=== PATIENT | female | born 1985 | race Caucasian/White ===

== ENCOUNTER 2021-01-08 02:35 | Inpatient (IN) ==
[2021-01-08] MEDS ORDERED: Isovue-370 500 ML BOTTLE IVP ONE (02:47)
[2021-01-08] MEDS ORDERED: 0.9 % Sodium Chloride 1,000 ML IVC ONE (03:07)
[2021-01-08 03:10] LABS: ABG Base Excess 4 mEq/L (-2 to 3); ABG HCO3 36 mEq/L (21-27); ABG Oxygen Saturation 93 % (95-98); ABG PCO2 101 mmHg (35-45); ABG PH 7.16 pH Units (7.32-7.45); ABG PO2 91 mmHg (85-104); ABG TCO2 40 mEq/L (20-26); Blood Gas VT 500 cc
[2021-01-08 03:17] LABS: Basophils % 0.2 %; Mean Corpuscular HGB Conc 32.5 g/dL (31.6-35.5); Mean Corpuscular Hemoglobin 30.8 pg (28.0-33.3); Red Cell Distribution Width 11.5 % (11.5-14.5)
[2021-01-08 03:18] LABS: Basophils # 0.1 K/mcL (0.0-0.2); Hematocrit 41.9 % (35.3-44.9); Hemoglobin 13.6 g/dL (11.5-15.4); Immature Granulocytes % 0.6 % (0-4); Lymphocytes % 3.9 %; Mean Corpuscular Volume 94.8 fL (83.0-100.0); Mean Platelet Volume 10.7 fL (9.4-12.4); Monocytes # 1.3 K/mcL (0.0-1.3); Monocytes % 5.2 %; Neutrophils # 22.2 K/mcL (1.6-8.9); Platelet Count 249 K/mcL (140-400); Red Blood Count 4.42 M/mcL (3.82-4.97); Segmented Neutrophils % 90.1 %; White Blood Count 24.6 K/mcL (4.3-11.1)
[2021-01-08 03:23] LABS: VBG HCO3 33 mEq/L (21-27); VBG PCO2 73 mmHg (41-51); VBG PH 7.26 pH Units (7.32-7.42); VBG PO2 75 mmHg (25-50)
[2021-01-08 03:24] LABS: INR 1.2; Prothrombin Time 14.3 Seconds (9.4-12.1)
[2021-01-08] MEDS ORDERED: Piperacillin/Tazobactam 3.375 GM in 0.9 % Sodium Chloride Mini Bag 100 ML IVPB ONE (03:26)
[2021-01-08] MEDS ORDERED: Vancomycin 2,000 MG/520 ML IV.SOLN IVPB ONE (03:26)
[2021-01-08 03:27] LABS: Activated Partial Thrombo Time 27.1 Seconds (26.0-36.0)
[2021-01-08 03:40] LABS: Alanine Aminotransferase 13 Units/L (7-52); Albumin 3.8 g/dL (3.5-5.7); Albumin/Globulin Ratio 1.1 (1.1-2.2); Alkaline Phosphatase 89 Units/L (34-104); Aspartate Amino Transferase 10 Units/L (13-39); BUN/Creatinine Ratio 41 (6-26); Bilirubin,Indirect 0.3 mg/dL (0.0-1.0); Bilirubin,Total 0.3 mg/dL (0.3-1.0); Blood Urea Nitrogen 12 mg/dL (6-20); Calcium 9.1 mg/dL (8.6-10.3); Carbon Dioxide 31 mEq/L (23-29); Chloride 95 mEq/L (98-107); Globulin 3.6 g/dL (2.4-3.5); Glucose 220 mg/dL (70-105); Magnesium 1.9 mg/dL (1.6-2.6); Osmolality,Calculated 283 (280-300); Potassium 4.5 mEq/L (3.5-5.1); Sodium 133 mEq/L (136-145); Total Protein 7.4 g/dL (6.4-8.9); Troponin I 0.03 ng/mL (< 0.04); eGFR For African Americans > 60 (> 60); eGFR For Non-African Americans > 60 (> 60)
[2021-01-08 04:02] LABS: Platelet Estimate Normal (Normal)
[2021-01-08 05:35] LABS: ABG Base Excess 4 mEq/L (-2 to 3); ABG HCO3 31 mEq/L (21-27); ABG Oxygen Saturation 89 % (95-98); ABG PCO2 54 mmHg (35-45); ABG PH 7.36 pH Units (7.32-7.45); ABG PO2 60 mmHg (85-104); ABG TCO2 32 mEq/L (20-26); Blood Gas Modality AVAPS; Blood Gas VT 500 cc
[2021-01-08 06:29] LABS: Bacteria,Urine Few per hpf (None-Few); Bilirubin,Urine Negative (Negative); Blood,Urine Negative (Negative); Clarity,Urine Clear (Clear); Color,Urine Yellow (Yellow); Glucose,Urine (UA) >=1000 mg/dL (Normal); Ketones,Urine 40 mg/dL (Negative); Leukocyte Esterase,Urine Trace (Negative); Mucus,Urine Few per lpf (None-Few); Nitrite,Urine Negative (Negative); Protein,Urine 100 mg/dL (Neg-Trace); RBC,Urine 0-3 per hpf (0-3); Specific Gravity,Urine > 1.030 (1.010-1.025); Squamous Epithelial Cell,Urine Few per hpf (None-Few)
[2021-01-08] MEDS ORDERED: Naloxone 0.4 MG/ML INJ IVP PRN ×2 (07:48→08:16)
[2021-01-08] MEDS ORDERED: 0.9 % Sodium Chloride 1,000 ML ONE (09:46)
[2021-01-08] MEDS: 0.9 % Sodium Chloride 1,000 ML IVC SCH ×2 (09:49→20:03)
[2021-01-08] MEDS: *HR* Heparin 5,000 UNIT/ML VIAL SQ SCH ×2 (09:51→18:37)
[2021-01-08] MEDS ORDERED: Dextrose Gel 15 GM/37.5 ML TUBE PO PRN ×2 (11:25)
[2021-01-08 11:52] LABS: ABG Base Excess 6 mEq/L (-2 to 3); ABG HCO3 33 mEq/L (21-27); ABG Oxygen Saturation 95 % (95-98); ABG PCO2 52 mmHg (35-45); ABG PO2 76 mmHg (85-104); ABG TCO2 34 mEq/L (20-26); Blood Gas VT 500 cc
[2021-01-08] MEDS: Piperacillin/Tazobactam 3.375 GM in 0.9 % Sodium Chloride Mini Bag 100 ML IVPB SCH ×2 (13:50→20:04)
[2021-01-08] MEDS: Insulin LISPRO 300 UNITS/3 ML VIAL SUBQ SCH ×2 (14:31→18:37)
[2021-01-08] MEDS: Vancomycin 1,250 MG/262.5 ML IV.SOLN IVPB SCH (18:36)
[2021-01-08] MEDS ORDERED: *HR* LORazepam 2 MG/ML VIAL IVP ONE (21:21)
[2021-01-09] MEDS: Insulin LISPRO 300 UNITS/3 ML VIAL SUBQ SCH ×6 (00:07→23:59)
[2021-01-09] MEDS: *HR* Heparin 5,000 UNIT/ML VIAL SQ SCH ×4 (01:19→23:58)
[2021-01-09] MEDS: *HR* OxyCODONE/APAP 7.5/325 TABLET PO PRN ×3 (02:40→20:57)
[2021-01-09] MEDS: Piperacillin/Tazobactam 3.375 GM in 0.9 % Sodium Chloride Mini Bag 100 ML IVPB SCH ×3 (04:15→20:22)
[2021-01-09 04:29] LABS: Basophils % 0.2 %; Eosinophils % 0.2 %; Hematocrit 32.9 % (35.3-44.9); Immature Granulocytes % 0.5 % (0-4); Lymphocytes # 2.8 K/mcL (0.6-4.6); Lymphocytes % 16.8 %; Mean Corpuscular HGB Conc 31.3 g/dL (31.6-35.5); Mean Corpuscular Hemoglobin 30.5 pg (28.0-33.3); Mean Corpuscular Volume 97.3 fL (83.0-100.0); Mean Platelet Volume 10.3 fL (9.4-12.4); Monocytes # 1.3 K/mcL (0.0-1.3); Monocytes % 7.8 %; Neutrophils # 12.2 K/mcL (1.6-8.9); Platelet Count 260 K/mcL (140-400); Red Blood Count 3.38 M/mcL (3.82-4.97); Red Cell Distribution Width 11.7 % (11.5-14.5); Segmented Neutrophils % 74.5 %; White Blood Count 16.4 K/mcL (4.3-11.1)
[2021-01-09 04:42] LABS: Hemoglobin 10.3 g/dL (11.5-15.4)
[2021-01-09 04:56] LABS: Blood Urea Nitrogen 7 mg/dL (6-20); Calcium 8.4 mg/dL (8.6-10.3); Carbon Dioxide 33 mEq/L (23-29); Chloride 101 mEq/L (98-107); Glucose 123 mg/dL (70-105); Osmolality,Calculated 285 (280-300); Potassium 3.2 mEq/L (3.5-5.1); Sodium 138 mEq/L (136-145)
[2021-01-09] MEDS ORDERED: Atropine 1% Opth Drops 100 DROP/5 ML BOTTLE SL PRN (07:33)
[2021-01-09] MEDS ORDERED: Potassium Chloride 40 MEQ, Lidocaine 1% 2 ML in 0.9 % Sodium Chloride 500 ML IVPB ONE (07:33)
[2021-01-09] MEDS ORDERED: Cyanocobalamin (B-12) 1,000 MCG/ML VIAL IM SCH (07:45)
[2021-01-09] MEDS: Vancomycin 1,250 MG/262.5 ML IV.SOLN IVPB SCH ×2 (07:47→18:07)
[2021-01-09] MEDS ORDERED: SUMAtriptan succinate 50 MG TABLET PO PRN (07:56)
[2021-01-09] MEDS: Scopolamine Patch 1.5 MG PATCH.TD72 TD SCH (08:14)
[2021-01-09] MEDS: Glycopyrrolate 1 MG TABLET PO SCH ×2 (08:15→20:23)
[2021-01-09] MEDS: diazePAM 5 MG TABLET PO PRN ×2 (08:16→23:58)
[2021-01-09] MEDS: Baclofen 10 MG TABLET PO SCH ×3 (08:16→20:23)
[2021-01-09] MEDS ORDERED: lisinopriL 10 MG TABLET PO SCH (09:00)
[2021-01-09] MEDS ORDERED: Insulin DETEMIR 100 UNIT/ML X5UNITS SUBQ SCH (09:00)
[2021-01-09] MEDS ORDERED: Ringers Solution, Lactated 1,000 ML ONE (12:56)
[2021-01-09] MEDS ORDERED: Glycopyrrolate 0.2 MG/ML VIAL IVP ONE (13:11)
[2021-01-09] MEDS ORDERED: Lidocaine TOPICAL Soln 50 ML BOTTLE ONE (13:17)
[2021-01-09] MEDS ORDERED: Lidocaine Jelly 6ml 1 APPL/6 ML JEL.PF.APP ONE (13:17)
[2021-01-09] MEDS ORDERED: *HR* Midazolam HCl 5 MG/5 ML VIAL IVP ONE (13:30)
[2021-01-09] MEDS ORDERED: *HR* Etomidate 20 MG/10 ML AMPUL IVP ONE (13:30)
[2021-01-09] MEDS ORDERED: *HR* Midazolam HCl 2 MG/2 ML VIAL IVP ONE (13:30)
[2021-01-09 14:04] LABS: ABG Base Excess 5 mEq/L (-2 to 3); ABG HCO3 34 mEq/L (21-27); ABG Oxygen Saturation 91 % (95-98); ABG PCO2 76 mmHg (35-45); ABG PH 7.26 pH Units (7.32-7.45); ABG PO2 73 mmHg (85-104); ABG TCO2 36 mEq/L (20-26)
[2021-01-09 15:41] LABS: ABG Base Excess 8 mEq/L (-2 to 3); ABG HCO3 35 mEq/L (21-27); ABG Oxygen Saturation 97 % (95-98); ABG PCO2 60 mmHg (35-45); ABG PH 7.37 pH Units (7.32-7.45); ABG PO2 99 mmHg (85-104); ABG TCO2 37 mEq/L (20-26); Blood Gas Modality AVAPS; Blood Gas VT 500 cc
[2021-01-09 17:23] LABS: Phosphorous 2.8 mg/dL (2.7-4.5)
[2021-01-10] MEDS: Vancomycin 1,250 MG/262.5 ML IV.SOLN IVPB SCH ×3 (03:39→19:15)
[2021-01-10] MEDS: Piperacillin/Tazobactam 3.375 GM in 0.9 % Sodium Chloride Mini Bag 100 ML IVPB SCH ×3 (03:39→19:13)
[2021-01-10 04:04] LABS: Hematocrit 30.9 % (35.3-44.9); Hemoglobin 9.6 g/dL (11.5-15.4); Mean Corpuscular HGB Conc 31.1 g/dL (31.6-35.5); Mean Corpuscular Hemoglobin 30.3 pg (28.0-33.3); Mean Corpuscular Volume 97.5 fL (83.0-100.0); Platelet Count 292 K/mcL (140-400); Red Blood Count 3.17 M/mcL (3.82-4.97); Red Cell Distribution Width 11.8 % (11.5-14.5); White Blood Count 15.7 K/mcL (4.3-11.1)
[2021-01-10] MEDS: Insulin LISPRO 300 UNITS/3 ML VIAL SUBQ SCH ×5 (04:20→19:14)
[2021-01-10 04:24] LABS: BUN/Creatinine Ratio 40 (6-26); Blood Urea Nitrogen 8 mg/dL (6-20); Calcium 8.6 mg/dL (8.6-10.3); Carbon Dioxide 34 mEq/L (23-29); Chloride 103 mEq/L (98-107); Glucose 94 mg/dL (70-105); Magnesium 1.7 mg/dL (1.6-2.6); Osmolality,Calculated 292 (280-300); Phosphorous 2.1 mg/dL (2.7-4.5); Potassium 3.6 mEq/L (3.5-5.1); Sodium 142 mEq/L (136-145); eGFR For African Americans > 60 (> 60); eGFR For Non-African Americans > 60 (> 60)
[2021-01-10] MEDS: *HR* OxyCODONE/APAP 7.5/325 TABLET PO PRN ×2 (08:29→18:27)
[2021-01-10] MEDS: Baclofen 10 MG TABLET PO SCH ×3 (08:30→20:31)
[2021-01-10] MEDS: Glycopyrrolate 1 MG TABLET PO SCH ×2 (08:30→20:31)
[2021-01-10] MEDS: *HR* Heparin 5,000 UNIT/ML VIAL SQ SCH ×2 (08:30→17:21)
[2021-01-10] MEDS ORDERED: Insulin DETEMIR 100 UNIT/ML X5UNITS SUBQ SCH ×2 (09:00→11:30)
[2021-01-10 09:04] LABS: Acinetobacter baumannii by PCR Not Detected (Not Detect); Enterobacter cloacae Cmplx PCR Not Detected (Not Detect); Enterobacteriaceae by PCR Not Detected (Not Detect); Enterococcus by PCR Not Detected (Not Detect); Escherichia coli by PCR Not Detected (Not Detect); Klebsiella oxytoca by PCR Not Detected (Not Detect); Klebsiella pneumoniae by PCR Not Detected (Not Detect); Staphylococcus aureus by PCR Not Detected (Not Detect); Staphylococcus by PCR DETECTED (Not Detect); Streptococcus agalactiae(B)PCR Not Detected (Not Detect); Streptococcus by PCR Not Detected (Not Detect); Streptococcus pneumoniae PCR Not Detected (Not Detect); Streptococcus pyogenes (A) PCR Not Detected (Not Detect); mecA Methicillin-Resist Gene DETECTED (Not Detect)
[2021-01-10 09:05] LABS: Candida albicans by PCR Not Detected (Not Detect); Candida glabrata by PCR Not Detected (Not Detect); Candida krusei by PCR Not Detected (Not Detect); Candida parapsilosis by PCR Not Detected (Not Detect); Candida tropicalis by PCR Not Detected (Not Detect); Proteus by PCR Not Detected (Not Detect); Pseudomonas aeruginosa by PCR Not Detected (Not Detect); Serratia marcescens by PCR Not Detected (Not Detect)
[2021-01-10] MEDS: diazePAM 5 MG TABLET PO PRN (15:04)
[2021-01-10] MEDS: Vancomycin 1,500 MG/265 ML IV.SOLN IVPB SCH (18:28)
[2021-01-10] MEDS: *HR* Dextrose 50 % in Water (Vial) 50 ML VIAL IVP PRN ×2 (19:23→20:06)
[2021-01-10] MEDS: D5% in Water 1,000 ML IVC PRN (20:07)
[2021-01-10] MEDS: Bisacodyl 10 MG RECTAL SUPPOSITORY RC SCH (20:31)
[2021-01-11] MEDS: *HR* OxyCODONE/APAP 7.5/325 TABLET PO PRN ×3 (00:37→18:54)
[2021-01-11] MEDS: *HR* Heparin 5,000 UNIT/ML VIAL SQ SCH ×4 (00:37→22:54)
[2021-01-11] MEDS: Insulin LISPRO 300 UNITS/3 ML VIAL SUBQ SCH ×7 (00:37→23:02)
[2021-01-11] MEDS: Vancomycin 1,500 MG/265 ML IV.SOLN IVPB SCH (01:59)
[2021-01-11] MEDS: tiZANidine 4 MG TABLET PO PRN ×3 (03:14→22:54)
[2021-01-11 04:15] LABS: Basophils # 0.1 K/mcL (0.0-0.2); Basophils % 0.3 %; Eosinophils # 0.1 K/mcL (0.0-0.6); Eosinophils % 0.7 %; Hematocrit 30.9 % (35.3-44.9); Hemoglobin 10.1 g/dL (11.5-15.4); Immature Granulocytes % 0.7 % (0-4); Lymphocytes # 2.7 K/mcL (0.6-4.6); Lymphocytes % 17.8 %; Mean Corpuscular HGB Conc 32.7 g/dL (31.6-35.5); Mean Corpuscular Hemoglobin 31.6 pg (28.0-33.3); Mean Corpuscular Volume 96.6 fL (83.0-100.0); Mean Platelet Volume 10.1 fL (9.4-12.4); Monocytes # 1.1 K/mcL (0.0-1.3); Monocytes % 7.1 %; Neutrophils # 11.2 K/mcL (1.6-8.9); Platelet Count 313 K/mcL (140-400); Red Cell Distribution Width 11.9 % (11.5-14.5); Segmented Neutrophils % 73.4 %; White Blood Count 15.2 K/mcL (4.3-11.1)
[2021-01-11 04:16] LABS: BUN/Creatinine Ratio 31 (6-26); Blood Urea Nitrogen 11 mg/dL (6-20); Calcium 8.8 mg/dL (8.6-10.3); Carbon Dioxide 32 mEq/L (23-29); Chloride 103 mEq/L (98-107); Glucose 123 mg/dL (70-105); Osmolality,Calculated 289 (280-300); Potassium 3.7 mEq/L (3.5-5.1); Sodium 139 mEq/L (136-145); eGFR For African Americans > 60 (> 60); eGFR For Non-African Americans > 60 (> 60)
[2021-01-11] MEDS: Piperacillin/Tazobactam 3.375 GM in 0.9 % Sodium Chloride Mini Bag 100 ML IVPB SCH ×3 (04:31→20:25)
[2021-01-11] MEDS: D5% in Water 1,000 ML IVC PRN (05:04)
[2021-01-11] MEDS: Baclofen 10 MG TABLET PO SCH ×3 (09:58→20:26)
[2021-01-11] MEDS: Glycopyrrolate 1 MG TABLET PO SCH ×2 (09:58→20:26)
[2021-01-11] MEDS: diazePAM 5 MG TABLET PO PRN ×2 (10:44→22:54)
[2021-01-11 11:20] LABS: Phosphorous 2.9 mg/dL (2.7-4.5)
[2021-01-11] MEDS ORDERED: Calcium Gluconate 1gm/50mL 1 GM/50 ML BAG IVPB PRN (16:17)
[2021-01-11] MEDS ORDERED: *HR* Metoprolol 5 MG/5 ML VIAL IVP PRN (19:27)
[2021-01-11 19:41] LABS: BUN/Creatinine Ratio 22 (6-26); Blood Urea Nitrogen 13 mg/dL (6-20); Calcium 8.8 mg/dL (8.6-10.3); Carbon Dioxide 32 mEq/L (23-29); Chloride 101 mEq/L (98-107); Glucose 246 mg/dL (70-105); Osmolality,Calculated 296 (280-300); Potassium 3.7 mEq/L (3.5-5.1); Sodium 139 mEq/L (136-145); eGFR For African Americans > 60 (> 60); eGFR For Non-African Americans > 60 (> 60)
[2021-01-11] MEDS: Bisacodyl 10 MG RECTAL SUPPOSITORY RC SCH (20:26)
[2021-01-12 03:35] LABS: Basophils # 0.1 K/mcL (0.0-0.2); Basophils % 0.5 %; Eosinophils # 0.1 K/mcL (0.0-0.6); Eosinophils % 0.9 %; Hematocrit 33.6 % (35.3-44.9); Hemoglobin 10.5 g/dL (11.5-15.4); Immature Granulocytes % 1.4 % (0-4); Lymphocytes # 2.1 K/mcL (0.6-4.6); Lymphocytes % 13.7 %; Mean Corpuscular HGB Conc 31.3 g/dL (31.6-35.5); Mean Corpuscular Hemoglobin 30.2 pg (28.0-33.3); Mean Corpuscular Volume 96.6 fL (83.0-100.0); Mean Platelet Volume 9.6 fL (9.4-12.4); Monocytes # 1.4 K/mcL (0.0-1.3); Monocytes % 9.2 %; Neutrophils # 11.2 K/mcL (1.6-8.9); Platelet Count 307 K/mcL (140-400); Red Blood Count 3.48 M/mcL (3.82-4.97); Red Cell Distribution Width 11.9 % (11.5-14.5); Segmented Neutrophils % 74.3 %; White Blood Count 15.1 K/mcL (4.3-11.1)
[2021-01-12 03:51] LABS: BUN/Creatinine Ratio 24 (6-26); Blood Urea Nitrogen 13 mg/dL (6-20); Calcium 8.7 mg/dL (8.6-10.3); Carbon Dioxide 31 mEq/L (23-29); Chloride 101 mEq/L (98-107); Glucose 104 mg/dL (70-105); Osmolality,Calculated 290 (280-300); Potassium 3.8 mEq/L (3.5-5.1); Sodium 140 mEq/L (136-145); eGFR For African Americans > 60 (> 60); eGFR For Non-African Americans > 60 (> 60)
[2021-01-12 03:53] LABS: Magnesium 2.1 mg/dL (1.6-2.6)
[2021-01-12 03:56] LABS: Phosphorous 3.7 mg/dL (2.7-4.5)
[2021-01-12] MEDS: Insulin LISPRO 300 UNITS/3 ML VIAL SUBQ SCH ×5 (04:15→20:11)
[2021-01-12] MEDS: Piperacillin/Tazobactam 3.375 GM in 0.9 % Sodium Chloride Mini Bag 100 ML IVPB SCH ×3 (04:24→20:00)
[2021-01-12] MEDS: *HR* OxyCODONE/APAP 7.5/325 TABLET PO PRN ×2 (04:41→16:06)
[2021-01-12] MEDS: Baclofen 10 MG TABLET PO SCH ×3 (08:13→20:00)
[2021-01-12] MEDS: Glycopyrrolate 1 MG TABLET PO SCH ×2 (08:13→20:01)
[2021-01-12] MEDS: diazePAM 5 MG TABLET PO PRN ×2 (08:13→20:18)
[2021-01-12] MEDS: tiZANidine 4 MG TABLET PO PRN ×2 (08:17→20:00)
[2021-01-12] MEDS: *HR* Heparin 5,000 UNIT/ML VIAL SQ SCH ×2 (08:17→16:06)
[2021-01-12] MEDS: Scopolamine Patch 1.5 MG PATCH.TD72 TD SCH (08:17)
[2021-01-12] MEDS: Potassium Chloride Elixir 20 MEQ/15 ML UDC GTUBE SCH ×2 (08:20→20:00)
[2021-01-12] MEDS: D5% in Water 1,000 ML IVC PRN (13:52)
[2021-01-12] MEDS: Doxycycline 100 MG in 0.9 % Sodium Chloride Mini Bag 100 ML IVPB SCH (17:10)
[2021-01-12] MEDS: Bisacodyl 10 MG RECTAL SUPPOSITORY RC SCH ×2 (20:01→21:53)
[2021-01-12] MEDS ORDERED: Ammonia Inhalant AMPUL ONE (21:08)
[2021-01-12 21:09] LABS: ABG Base Excess 5 mEq/L (-2 to 3); ABG HCO3 30 mEq/L (21-27); ABG Oxygen Saturation 95 % (95-98); ABG PCO2 45 mmHg (35-45); ABG PH 7.43 pH Units (7.32-7.45); ABG PO2 73 mmHg (85-104); ABG TCO2 31 mEq/L (20-26); Blood Gas VT 500 cc
[2021-01-12] MEDS: Norepinephrine 4 MG/254 ML IV.SOLN IVC SCH (21:27)
[2021-01-13] MEDS: *HR* Heparin 5,000 UNIT/ML VIAL SQ SCH ×3 (01:38→16:16)
[2021-01-13] MEDS: Insulin LISPRO 300 UNITS/3 ML VIAL SUBQ SCH ×6 (01:39→20:11)
[2021-01-13] MEDS: D5% in Water 1,000 ML IVC PRN ×2 (01:39→17:19)
[2021-01-13] MEDS ORDERED: Orphenadrine 60 MG/2 ML VIAL IVP PRN (01:54)
[2021-01-13] MEDS: diazePAM 10 MG/2 ML SYRINGE IVP PRN ×2 (02:31→13:23)
[2021-01-13] MEDS: Piperacillin/Tazobactam 3.375 GM in 0.9 % Sodium Chloride Mini Bag 100 ML IVPB SCH ×3 (04:38→19:57)
[2021-01-13 04:42] LABS: Basophils # 0.1 K/mcL (0.0-0.2); Basophils % 0.4 %; Eosinophils # 0.1 K/mcL (0.0-0.6); Eosinophils % 0.9 %; Hematocrit 32.5 % (35.3-44.9); Hemoglobin 10.1 g/dL (11.5-15.4); Immature Granulocytes % 2.1 % (0-4); Lymphocytes # 2.5 K/mcL (0.6-4.6); Lymphocytes % 18.2 %; Mean Corpuscular HGB Conc 31.1 g/dL (31.6-35.5); Mean Corpuscular Hemoglobin 30.2 pg (28.0-33.3); Mean Corpuscular Volume 97.3 fL (83.0-100.0); Mean Platelet Volume 9.7 fL (9.4-12.4); Monocytes % 7.3 %; Neutrophils # 9.6 K/mcL (1.6-8.9); Platelet Count 342 K/mcL (140-400); Red Blood Count 3.34 M/mcL (3.82-4.97); Segmented Neutrophils % 71.1 %; White Blood Count 13.5 K/mcL (4.3-11.1)
[2021-01-13 05:00] LABS: BUN/Creatinine Ratio 20 (6-26); Blood Urea Nitrogen 12 mg/dL (6-20); Calcium 8.8 mg/dL (8.6-10.3); Carbon Dioxide 31 mEq/L (23-29); Chloride 101 mEq/L (98-107); Glucose 155 mg/dL (70-105); Osmolality,Calculated 291 (280-300); Potassium 4.1 mEq/L (3.5-5.1); Sodium 139 mEq/L (136-145); eGFR For African Americans > 60 (> 60); eGFR For Non-African Americans > 60 (> 60)
[2021-01-13] MEDS: Doxycycline 100 MG in 0.9 % Sodium Chloride Mini Bag 100 ML IVPB SCH ×2 (05:15→17:16)
[2021-01-13 05:56] LABS: Magnesium 2.1 mg/dL (1.6-2.6); Phosphorous 3.8 mg/dL (2.7-4.5)
[2021-01-13] MEDS: *HR* OxyCODONE/APAP 7.5/325 TABLET PO PRN ×2 (08:19→16:16)
[2021-01-13] MEDS: Glycopyrrolate 1 MG TABLET PO SCH ×2 (08:19→21:14)
[2021-01-13] MEDS: Baclofen 10 MG TABLET PO SCH ×3 (08:19→21:13)
[2021-01-13] MEDS: diazePAM 5 MG TABLET PO PRN (08:19)
[2021-01-13] MEDS: Potassium Chloride Elixir 20 MEQ/15 ML UDC GTUBE SCH ×2 (08:21→21:13)
[2021-01-14] MEDS: *HR* OxyCODONE/APAP 7.5/325 TABLET PO PRN ×2 (00:04→08:13)
[2021-01-14] MEDS: *HR* Heparin 5,000 UNIT/ML VIAL SQ SCH ×4 (00:04→23:11)
[2021-01-14] MEDS: Norepinephrine 4 MG/254 ML IV.SOLN IVC SCH ×2 (00:05→20:21)
[2021-01-14] MEDS: Insulin LISPRO 300 UNITS/3 ML VIAL SUBQ SCH ×7 (00:05→23:27)
[2021-01-14] MEDS: Piperacillin/Tazobactam 3.375 GM in 0.9 % Sodium Chloride Mini Bag 100 ML IVPB SCH ×3 (04:00→20:07)
[2021-01-14 04:44] LABS: Basophils # 0.1 K/mcL (0.0-0.2); Basophils % 0.6 %; Eosinophils # 0.2 K/mcL (0.0-0.6); Eosinophils % 1.3 %; Hematocrit 32.1 % (35.3-44.9); Immature Granulocytes % 2.6 % (0-4); Lymphocytes # 3.1 K/mcL (0.6-4.6); Lymphocytes % 24.9 %; Mean Corpuscular HGB Conc 31.2 g/dL (31.6-35.5); Mean Corpuscular Hemoglobin 30.4 pg (28.0-33.3); Mean Corpuscular Volume 97.6 fL (83.0-100.0); Mean Platelet Volume 9.7 fL (9.4-12.4); Monocytes % 7.9 %; Neutrophils # 7.8 K/mcL (1.6-8.9); Platelet Count 306 K/mcL (140-400); Red Blood Count 3.29 M/mcL (3.82-4.97); Segmented Neutrophils % 62.7 %; White Blood Count 12.4 K/mcL (4.3-11.1)
[2021-01-14 05:00] LABS: BUN/Creatinine Ratio 17 (6-26); Blood Urea Nitrogen 11 mg/dL (6-20); Calcium 8.8 mg/dL (8.6-10.3); Carbon Dioxide 31 mEq/L (23-29); Chloride 103 mEq/L (98-107); Glucose 132 mg/dL (70-105); Osmolality,Calculated 295 (280-300); Potassium 3.8 mEq/L (3.5-5.1); Sodium 142 mEq/L (136-145); eGFR For African Americans > 60 (> 60); eGFR For Non-African Americans > 60 (> 60)
[2021-01-14] MEDS: Doxycycline 100 MG in 0.9 % Sodium Chloride Mini Bag 100 ML IVPB SCH ×2 (05:26→18:29)
[2021-01-14] MEDS: D5% in Water 1,000 ML IVC PRN ×2 (06:57→19:40)
[2021-01-14] MEDS: Baclofen 10 MG TABLET PO SCH ×3 (08:13→20:06)
[2021-01-14] MEDS: Glycopyrrolate 1 MG TABLET PO SCH ×2 (08:13→20:07)
[2021-01-14] MEDS: Potassium Chloride Elixir 20 MEQ/15 ML UDC GTUBE SCH ×2 (08:14→20:06)
[2021-01-14] MEDS: diazePAM 5 MG TABLET PO PRN (16:30)
[2021-01-14] MEDS ORDERED: Furosemide 20 MG/2 ML VIAL IVP ONE (16:43)
[2021-01-14] MEDS ORDERED: Artificial Tears SOLN 15 ML BOTTLE BOTH EYES PRN (16:43)
[2021-01-14] MEDS ORDERED: *HR* LORazepam 2 MG/ML VIAL IVP ONE (17:00)
[2021-01-14] MEDS ORDERED: *HR* LORazepam 2 MG/ML VIAL ONE (17:01)
[2021-01-14] MEDS: Metoclopramide 10 MG/2 ML VIAL IVP SCH (23:11)
[2021-01-14] MEDS: Morphine Sulfate 2 MG/ML SYRINGE IVP PRN (23:51)
[2021-01-15] MEDS ORDERED: Albuterol 2.5 MG/3 ML NEBULIZER IH PRN (00:44)
[2021-01-15] MEDS: Piperacillin/Tazobactam 3.375 GM in 0.9 % Sodium Chloride Mini Bag 100 ML IVPB SCH ×3 (03:50→20:59)
[2021-01-15] MEDS: Insulin LISPRO 300 UNITS/3 ML VIAL SUBQ SCH ×5 (03:51→21:15)
[2021-01-15 04:18] LABS: VBG Ionized Calcium 1.19 mmol/L (1.15-1.35)
[2021-01-15 04:23] LABS: Basophils % 0.3 %; Eosinophils # 0.1 K/mcL (0.0-0.6); Eosinophils % 0.7 %; Hematocrit 32.5 % (35.3-44.9); Hemoglobin 10.5 g/dL (11.5-15.4); Immature Granulocytes % 1.6 % (0-4); Mean Corpuscular HGB Conc 32.3 g/dL (31.6-35.5); Mean Corpuscular Hemoglobin 31.1 pg (28.0-33.3); Mean Corpuscular Volume 96.2 fL (83.0-100.0); Mean Platelet Volume 9.6 fL (9.4-12.4); Monocytes # 0.9 K/mcL (0.0-1.3); Monocytes % 6.2 %; Neutrophils # 9.9 K/mcL (1.6-8.9); Platelet Count 311 K/mcL (140-400); Red Blood Count 3.38 M/mcL (3.82-4.97); Red Cell Distribution Width 11.9 % (11.5-14.5); Segmented Neutrophils % 70.2 %; White Blood Count 14.1 K/mcL (4.3-11.1)
[2021-01-15 04:38] LABS: BUN/Creatinine Ratio 14 (6-26); Blood Urea Nitrogen 10 mg/dL (6-20); Carbon Dioxide 34 mEq/L (23-29); Chloride 102 mEq/L (98-107); Glucose 150 mg/dL (70-105); Magnesium 1.9 mg/dL (1.6-2.6); Osmolality,Calculated 296 (280-300); Phosphorous 5.2 mg/dL (2.7-4.5); Potassium 3.6 mEq/L (3.5-5.1); Sodium 142 mEq/L (136-145); eGFR For African Americans > 60 (> 60); eGFR For Non-African Americans > 60 (> 60)
[2021-01-15] MEDS: Metoclopramide 10 MG/2 ML VIAL IVP SCH ×4 (05:02→23:14)
[2021-01-15] MEDS: Doxycycline 100 MG in 0.9 % Sodium Chloride Mini Bag 100 ML IVPB SCH ×2 (05:02→17:56)
[2021-01-15] MEDS: *HR* Heparin 5,000 UNIT/ML VIAL SQ SCH ×3 (08:36→23:07)
[2021-01-15] MEDS: Potassium Chloride Elixir 20 MEQ/15 ML UDC GTUBE SCH ×2 (08:37→20:58)
[2021-01-15] MEDS: Docusate Oral Soln 100 MG/10 ML UDC GTUBE SCH ×2 (08:37→20:58)
[2021-01-15] MEDS: Scopolamine Patch 1.5 MG PATCH.TD72 TD SCH (08:37)
[2021-01-15] MEDS: Baclofen 10 MG TABLET PO SCH ×3 (08:38→20:58)
[2021-01-15] MEDS: Glycopyrrolate 1 MG TABLET PO SCH ×2 (08:38→20:58)
[2021-01-15] MEDS: *HR* OxyCODONE/APAP 7.5/325 TABLET PO PRN (08:38)
[2021-01-15] MEDS: D5% in Water 1,000 ML IVC PRN ×2 (08:40→22:19)
[2021-01-15 13:23] LABS: Magnesium 1.9 mg/dL (1.6-2.6); Potassium 4.4 mEq/L (3.5-5.1)
[2021-01-15] MEDS: Norepinephrine 4 MG/254 ML IV.SOLN IVC SCH (21:15)
[2021-01-15] MEDS: Morphine Sulfate 2 MG/ML SYRINGE IVP PRN (23:18)
[2021-01-16] MEDS: Insulin LISPRO 300 UNITS/3 ML VIAL SUBQ SCH ×6 (01:04→20:30)
[2021-01-16 03:31] LABS: VBG Ionized Calcium 1.17 mmol/L (1.15-1.35)
[2021-01-16 03:38] LABS: Basophils # 0.1 K/mcL (0.0-0.2); Basophils % 0.5 %; Eosinophils # 0.1 K/mcL (0.0-0.6); Eosinophils % 1.1 %; Hemoglobin 9.7 g/dL (11.5-15.4); Immature Granulocytes % 1.6 % (0-4); Lymphocytes # 3.4 K/mcL (0.6-4.6); Lymphocytes % 31.8 %; Mean Corpuscular HGB Conc 32.3 g/dL (31.6-35.5); Mean Corpuscular Hemoglobin 30.9 pg (28.0-33.3); Mean Corpuscular Volume 95.5 fL (83.0-100.0); Mean Platelet Volume 9.4 fL (9.4-12.4); Monocytes # 0.7 K/mcL (0.0-1.3); Monocytes % 6.9 %; Neutrophils # 6.2 K/mcL (1.6-8.9); Platelet Count 286 K/mcL (140-400); Red Blood Count 3.14 M/mcL (3.82-4.97); Segmented Neutrophils % 58.1 %; White Blood Count 10.7 K/mcL (4.3-11.1)
[2021-01-16 03:54] LABS: BUN/Creatinine Ratio 12 (6-26); Blood Urea Nitrogen 9 mg/dL (6-20); Calcium 8.9 mg/dL (8.6-10.3); Carbon Dioxide 30 mEq/L (23-29); Chloride 102 mEq/L (98-107); Glucose 123 mg/dL (70-105); Magnesium 2.1 mg/dL (1.6-2.6); Osmolality,Calculated 290 (280-300); Phosphorous 3.7 mg/dL (2.7-4.5); Potassium 3.9 mEq/L (3.5-5.1); Sodium 140 mEq/L (136-145); eGFR For African Americans > 60 (> 60); eGFR For Non-African Americans > 60 (> 60)
[2021-01-16] MEDS: Piperacillin/Tazobactam 3.375 GM in 0.9 % Sodium Chloride Mini Bag 100 ML IVPB SCH ×3 (03:54→20:10)
[2021-01-16] MEDS: Metoclopramide 10 MG/2 ML VIAL IVP SCH ×4 (05:49→23:28)
[2021-01-16] MEDS: Morphine Sulfate 2 MG/ML SYRINGE IVP PRN ×5 (05:49→22:41)
[2021-01-16] MEDS: Doxycycline 100 MG in 0.9 % Sodium Chloride Mini Bag 100 ML IVPB SCH ×2 (05:50→17:47)
[2021-01-16] MEDS ORDERED: *HR* Midazolam HCl 2 MG/2 ML VIAL ONE (07:00)
[2021-01-16] MEDS ORDERED: *HR* FentaNYL (PF) 100 MCG/2 ML VIAL ONE (07:00)
[2021-01-16] MEDS ORDERED: *HR* Propofol 200 MG/20 ML VIAL IVP ONE (07:00)
[2021-01-16] MEDS ORDERED: Ondansetron 4 MG/2 ML VIAL ONE (07:02)
[2021-01-16] MEDS ORDERED: Lidocaine -MPF 2% 2 ML VIAL ONE (07:02)
[2021-01-16] MEDS ORDERED: *HR* Succinylcholine 200 MG/10 ML VIAL IVP ONE (07:02)
[2021-01-16] MEDS ORDERED: *HR* Rocuronium Bromide 50 MG/5 ML VIAL ONE ×2 (07:02→07:12)
[2021-01-16] MEDS ORDERED: Oxymetazoline Nasal SPRAY BOTTLE NS ONE (07:16)
[2021-01-16] MEDS ORDERED: Lidocaine/EPI 1:100k 1% 50 ML VIAL ONE (07:23)
[2021-01-16] MEDS ORDERED: Lidocaine/EPI 1:200k 1% PF 10 ML VIAL ONE (07:23)
[2021-01-16] MEDS: *HR* Heparin 5,000 UNIT/ML VIAL SQ SCH ×3 (07:26→23:29)
[2021-01-16] MEDS ORDERED: Dexmedetomidine HCl 400 MCG/100 ML MLS IVC ONE (07:41)
[2021-01-16] MEDS ORDERED: Lidocaine Jelly 6ml 1 APPL/6 ML JEL.PF.APP ONE (07:43)
[2021-01-16] MEDS ORDERED: Acetaminophen IV 1,000 MG/100 ML BAG IVPB ONE ×2 (08:30→08:32)
[2021-01-16] MEDS: Docusate Oral Soln 100 MG/10 ML UDC GTUBE SCH ×2 (09:50→20:11)
[2021-01-16] MEDS: Potassium Chloride Elixir 20 MEQ/15 ML UDC GTUBE SCH ×2 (09:50→20:11)
[2021-01-16] MEDS: Glycopyrrolate 1 MG TABLET PO SCH ×2 (09:51→20:11)
[2021-01-16] MEDS: Baclofen 10 MG TABLET PO SCH ×3 (09:51→20:11)
[2021-01-16] MEDS: D5% in Water 1,000 ML IVC PRN ×2 (09:52→23:28)
[2021-01-16 10:40] LABS: ABG Base Excess 4 mEq/L (-2 to 3); ABG HCO3 29 mEq/L (21-27); ABG Oxygen Saturation 100 % (95-98); ABG PCO2 47 mmHg (35-45); ABG PH 7.41 pH Units (7.32-7.45); ABG PO2 195 mmHg (85-104); ABG TCO2 31 mEq/L (20-26); Blood Gas VT 400 cc
[2021-01-16] MEDS: *HR* OxyCODONE/APAP 7.5/325 TABLET PO PRN ×2 (11:41→20:11)
[2021-01-16] MEDS: diazePAM 5 MG TABLET PO PRN (17:52)
[2021-01-16] MEDS: Norepinephrine 4 MG/254 ML IV.SOLN IVC SCH (20:37)
[2021-01-17] MEDS: Insulin LISPRO 300 UNITS/3 ML VIAL SUBQ SCH ×7 (01:18→23:46)
[2021-01-17] MEDS: Piperacillin/Tazobactam 3.375 GM in 0.9 % Sodium Chloride Mini Bag 100 ML IVPB SCH ×3 (03:09→20:02)
[2021-01-17] MEDS: Morphine Sulfate 2 MG/ML SYRINGE IVP PRN ×3 (03:10→16:12)
[2021-01-17 03:13] LABS: Basophils # 0.1 K/mcL (0.0-0.2); Basophils % 0.4 %; Eosinophils # 0.1 K/mcL (0.0-0.6); Eosinophils % 0.8 %; Hematocrit 32.9 % (35.3-44.9); Hemoglobin 10.7 g/dL (11.5-15.4); Immature Granulocytes % 1.4 % (0-4); Lymphocytes # 2.4 K/mcL (0.6-4.6); Lymphocytes % 16.6 %; Mean Corpuscular HGB Conc 32.5 g/dL (31.6-35.5); Mean Corpuscular Hemoglobin 31.1 pg (28.0-33.3); Mean Corpuscular Volume 95.6 fL (83.0-100.0); Mean Platelet Volume 9.7 fL (9.4-12.4); Monocytes % 6.6 %; Neutrophils # 10.9 K/mcL (1.6-8.9); Platelet Count 266 K/mcL (140-400); Red Blood Count 3.44 M/mcL (3.82-4.97); Segmented Neutrophils % 74.2 %; White Blood Count 14.7 K/mcL (4.3-11.1)
[2021-01-17 03:28] LABS: VBG Ionized Calcium 1.22 mmol/L (1.15-1.35)
[2021-01-17 03:33] LABS: BUN/Creatinine Ratio 14 (6-26); Blood Urea Nitrogen 10 mg/dL (6-20); Calcium 8.9 mg/dL (8.6-10.3); Carbon Dioxide 28 mEq/L (23-29); Chloride 101 mEq/L (98-107); Glucose 194 mg/dL (70-105); Magnesium 1.8 mg/dL (1.6-2.6); Osmolality,Calculated 290 (280-300); Phosphorous 3.6 mg/dL (2.7-4.5); Potassium 4.1 mEq/L (3.5-5.1); Sodium 138 mEq/L (136-145); eGFR For African Americans > 60 (> 60); eGFR For Non-African Americans > 60 (> 60)
[2021-01-17] MEDS: Doxycycline 100 MG in 0.9 % Sodium Chloride Mini Bag 100 ML IVPB SCH (05:40)
[2021-01-17] MEDS: Metoclopramide 10 MG/2 ML VIAL IVP SCH ×4 (05:41→23:31)
[2021-01-17] MEDS: *HR* OxyCODONE/APAP 7.5/325 TABLET PO PRN ×2 (05:54→20:04)
[2021-01-17] MEDS: Potassium Chloride Elixir 20 MEQ/15 ML UDC GTUBE SCH ×2 (08:21→20:03)
[2021-01-17] MEDS: Glycopyrrolate 1 MG TABLET PO SCH ×2 (08:22→20:04)
[2021-01-17] MEDS: Docusate Oral Soln 100 MG/10 ML UDC GTUBE SCH ×2 (08:22→20:03)
[2021-01-17] MEDS: Baclofen 10 MG TABLET PO SCH ×3 (08:22→20:04)
[2021-01-17] MEDS: *HR* Heparin 5,000 UNIT/ML VIAL SQ SCH ×3 (08:22→23:32)
[2021-01-17] MEDS ORDERED: Bisacodyl 10 MG RECTAL SUPPOSITORY RC PRN (10:22)
[2021-01-17] MEDS ORDERED: Bisacodyl 10 MG RECTAL SUPPOSITORY RC ONE (11:00)
[2021-01-17] MEDS: Norepinephrine 4 MG/254 ML IV.SOLN IVC SCH (20:32)
[2021-01-18] MEDS: Piperacillin/Tazobactam 3.375 GM in 0.9 % Sodium Chloride Mini Bag 100 ML IVPB SCH ×3 (04:19→20:37)
[2021-01-18] MEDS: diazePAM 5 MG TABLET PO PRN ×2 (04:19→20:38)
[2021-01-18] MEDS: *HR* OxyCODONE/APAP 7.5/325 TABLET PO PRN ×2 (04:19→17:33)
[2021-01-18 04:40] LABS: Basophils # 0.1 K/mcL (0.0-0.2); Basophils % 0.5 %; Eosinophils # 0.1 K/mcL (0.0-0.6); Eosinophils % 1.1 %; Hematocrit 32.1 % (35.3-44.9); Hemoglobin 10.4 g/dL (11.5-15.4); Immature Granulocytes % 1.3 % (0-4); Lymphocytes # 3.2 K/mcL (0.6-4.6); Lymphocytes % 23.9 %; Mean Corpuscular HGB Conc 32.4 g/dL (31.6-35.5); Mean Corpuscular Volume 95.5 fL (83.0-100.0); Mean Platelet Volume 9.7 fL (9.4-12.4); Monocytes # 0.9 K/mcL (0.0-1.3); Monocytes % 6.6 %; Neutrophils # 8.9 K/mcL (1.6-8.9); Platelet Count 267 K/mcL (140-400); Red Blood Count 3.36 M/mcL (3.82-4.97); Red Cell Distribution Width 12.1 % (11.5-14.5); Segmented Neutrophils % 66.6 %; White Blood Count 13.3 K/mcL (4.3-11.1)
[2021-01-18 04:44] LABS: VBG Ionized Calcium 1.21 mmol/L (1.15-1.35)
[2021-01-18 05:05] LABS: BUN/Creatinine Ratio 20 (6-26); Blood Urea Nitrogen 13 mg/dL (6-20); Calcium 9.1 mg/dL (8.6-10.3); Carbon Dioxide 28 mEq/L (23-29); Chloride 102 mEq/L (98-107); Glucose 150 mg/dL (70-105); Magnesium 2.1 mg/dL (1.6-2.6); Osmolality,Calculated 293 (280-300); Potassium 4.4 mEq/L (3.5-5.1); Sodium 140 mEq/L (136-145); eGFR For African Americans > 60 (> 60); eGFR For Non-African Americans > 60 (> 60)
[2021-01-18] MEDS: Insulin LISPRO 300 UNITS/3 ML VIAL SUBQ SCH ×6 (06:54→23:41)
[2021-01-18] MEDS: Metoclopramide 10 MG/2 ML VIAL IVP SCH ×4 (06:55→23:39)
[2021-01-18] MEDS: Docusate Oral Soln 100 MG/10 ML UDC GTUBE SCH ×2 (08:10→20:37)
[2021-01-18] MEDS: Baclofen 10 MG TABLET PO SCH ×3 (08:10→20:38)
[2021-01-18] MEDS: *HR* Heparin 5,000 UNIT/ML VIAL SQ SCH ×3 (08:10→23:39)
[2021-01-18] MEDS: Scopolamine Patch 1.5 MG PATCH.TD72 TD SCH (08:11)
[2021-01-18] MEDS: Potassium Chloride Elixir 20 MEQ/15 ML UDC GTUBE SCH ×2 (08:11→20:37)
[2021-01-18] MEDS: Morphine Sulfate 2 MG/ML SYRINGE IVP PRN ×3 (08:12→22:17)
[2021-01-18] MEDS: Glycopyrrolate 1 MG TABLET PO SCH ×2 (08:12→20:37)
[2021-01-18] MEDS: Chlorhexidine Rinse 15 ML MOUTHWASH MM SCH (20:37)
[2021-01-18] MEDS: Norepinephrine 4 MG/254 ML IV.SOLN IVC SCH (20:39)
[2021-01-19] MEDS: *HR* OxyCODONE/APAP 7.5/325 TABLET PO PRN (00:27)
[2021-01-19] MEDS: Piperacillin/Tazobactam 3.375 GM in 0.9 % Sodium Chloride Mini Bag 100 ML IVPB SCH ×2 (04:22→11:35)
[2021-01-19] MEDS: Insulin LISPRO 300 UNITS/3 ML VIAL SUBQ SCH ×3 (04:23→12:17)
[2021-01-19 04:42] LABS: Basophils # 0.1 K/mcL (0.0-0.2); Basophils % 0.5 %; Eosinophils # 0.2 K/mcL (0.0-0.6); Eosinophils % 1.2 %; Hematocrit 31.2 % (35.3-44.9); Hemoglobin 9.7 g/dL (11.5-15.4); Immature Granulocytes % 1.2 % (0-4); Lymphocytes # 3.1 K/mcL (0.6-4.6); Lymphocytes % 19.8 %; Mean Corpuscular HGB Conc 31.1 g/dL (31.6-35.5); Mean Corpuscular Hemoglobin 30.1 pg (28.0-33.3); Mean Corpuscular Volume 96.9 fL (83.0-100.0); Mean Platelet Volume 10.1 fL (9.4-12.4); Monocytes # 1.1 K/mcL (0.0-1.3); Monocytes % 6.8 %; Neutrophils # 10.9 K/mcL (1.6-8.9); Platelet Count 246 K/mcL (140-400); Red Blood Count 3.22 M/mcL (3.82-4.97); Red Cell Distribution Width 12.1 % (11.5-14.5); Segmented Neutrophils % 70.5 %; White Blood Count 15.5 K/mcL (4.3-11.1)
[2021-01-19 05:01] LABS: BUN/Creatinine Ratio 21 (6-26); Blood Urea Nitrogen 13 mg/dL (6-20); Carbon Dioxide 29 mEq/L (23-29); Chloride 101 mEq/L (98-107); Glucose 164 mg/dL (70-105); Osmolality,Calculated 292 (280-300); Potassium 4.3 mEq/L (3.5-5.1); Sodium 139 mEq/L (136-145); eGFR For African Americans > 60 (> 60); eGFR For Non-African Americans > 60 (> 60)
[2021-01-19] MEDS ORDERED: *HR* OxyCODONE/APAP 7.5/325 TABLET PO PRN (05:05)
[2021-01-19] MEDS: Metoclopramide 10 MG/2 ML VIAL IVP SCH ×2 (05:22→11:35)
[2021-01-19] MEDS: Baclofen 10 MG TABLET PO SCH (07:39)
[2021-01-19] MEDS: Chlorhexidine Rinse 15 ML MOUTHWASH MM SCH (07:39)
[2021-01-19] MEDS: *HR* Heparin 5,000 UNIT/ML VIAL SQ SCH (07:39)
[2021-01-19] MEDS: Potassium Chloride Elixir 20 MEQ/15 ML UDC GTUBE SCH (07:39)
[2021-01-19] MEDS: Docusate Oral Soln 100 MG/10 ML UDC GTUBE SCH (07:40)
[2021-01-19] MEDS: Glycopyrrolate 1 MG TABLET PO SCH (07:40)
[2021-01-19] MEDS: diazePAM 5 MG TABLET PO PRN (10:47)
[2021-01-19 13:10] VITALS: BP 105/69
== END 2021-01-19 13:52 | DRG 4 ==
LOC: EMEROOARM 02:35 → 2NENU 13:02 → ICNU 01-09 13:27
PROVIDERS: ADMIT Internal Medicine; ATTEND Internal Medicine

== ENCOUNTER 2022-01-10 02:57 | Inpatient (IN) ==
[2022-01-10 03:59] LABS: Basophils # 0.1 K/mcL (0.0-0.2); Basophils % 0.3 %; Eosinophils % 0.2 %; Hemoglobin 11.2 g/dL (11.5-15.4); Immature Granulocytes % 1.1 % (0-4); Lymphocytes # 1.9 K/mcL (0.6-4.6); Lymphocytes % 8.9 %; Mean Corpuscular Volume 93.8 fL (83.0-100.0); Monocytes # 1.4 K/mcL (0.0-1.3); Monocytes % 6.6 %; Neutrophils # 18.1 K/mcL (1.6-8.9); Platelet Count 388 K/mcL (140-400); Red Blood Count 3.73 M/mcL (3.82-4.97); Red Cell Distribution Width 12.7 % (11.5-14.5); Segmented Neutrophils % 82.9 %; White Blood Count 21.9 K/mcL (4.3-11.1)
[2022-01-10 04:56] LABS: Alanine Aminotransferase 7 Units/L (7-52); Albumin 3.3 g/dL (3.5-5.7); Albumin/Globulin Ratio 0.8 (1.1-2.2); Alkaline Phosphatase 84 Units/L (34-104); Aspartate Amino Transferase 9 Units/L (13-39); BUN/Creatinine Ratio 80 (6-26); Bilirubin,Indirect 0.3 mg/dL (0.0-1.0); Bilirubin,Total 0.3 mg/dL (0.3-1.0); Blood Urea Nitrogen 16 mg/dL (6-20); Calcium 8.7 mg/dL (8.6-10.3); Carbon Dioxide 29 mEq/L (23-29); Chloride 99 mEq/L (98-107); Globulin 3.9 g/dL (2.4-3.5); Glucose 103 mg/dL (70-105); Osmolality,Calculated 279 (280-300); Potassium 4.2 mEq/L (3.5-5.1); Sodium 134 mEq/L (136-145); Total Protein 7.2 g/dL (6.4-8.9); Troponin I < 0.03 ng/mL (< 0.04); eGFR For African Americans > 60 (> 60); eGFR For Non-African Americans > 60 (> 60)
[2022-01-10 05:25] LABS: Influenza A PCR Negative (Negative); Influenza B PCR Negative (Negative); Resp. Syncytial Virus PCR Negative (Negative)
[2022-01-10 05:26] LABS: SARS-CoV-2 by PCR (In House) Negative (Negative)
[2022-01-10] MEDS ORDERED: MetroNIDAZOLE 500 MG/100 ML 500 MG/100 ML BAG IVPB ONE (05:26)
[2022-01-10] MEDS ORDERED: cefTRIAXone 1,000 MG in Water for inj. (sterile) 10 ML IVP ONE (05:26)
[2022-01-10] MEDS ORDERED: Morphine Sulfate 2 MG/ML SYRINGE IVP ONE (06:01)
[2022-01-10] MEDS ORDERED: Ketorolac 30 MG/ML VIAL IVP PRN (06:16)
[2022-01-10] MEDS ORDERED: Ondansetron 4 MG/2 ML VIAL IVP PRN (06:16)
[2022-01-10] MEDS ORDERED: Acetaminophen 325 MG TABLET PO PRN (06:16)
[2022-01-10] MEDS ORDERED: Naloxone 0.4 MG/ML INJ IVP PRN (06:16)
[2022-01-10] MEDS ORDERED: *HR* Metoprolol 5 MG/5 ML VIAL IVP ONE ×2 (10:00→10:01)
[2022-01-10] MEDS: 0.9 % Sodium Chloride 1,000 ML IVC SCH ×2 (10:19→20:20)
[2022-01-10] MEDS: diazePAM 2 MG TABLET GTUBE PRN ×2 (10:20→20:04)
[2022-01-10] MEDS: *HR* OxyCODONE Oral Soln 5 MG/5 ML UD.LIQ GTUBE PRN ×3 (10:21→22:09)
[2022-01-10] MEDS: Azithromycin 500 MG in 0.9 % Sodium Chloride 250 ML IVPB SCH (10:23)
[2022-01-10] MEDS: Piperacillin/Tazobactam 3.375 GM in 0.9 % Sodium Chloride Mini Bag 100 ML IVPB SCH ×2 (10:24→16:18)
[2022-01-10] MEDS ORDERED: Dextrose Gel 15 GM/37.5 ML TUBE PO PRN ×2 (10:59)
[2022-01-10] MEDS ORDERED: D5% in Water 1,000 ML IVC PRN (10:59)
[2022-01-10] MEDS: *HR* Dextrose 50 % in Water (Syg) 50 ML SYRINGE IVP PRN ×2 (12:03→16:45)
[2022-01-10] MEDS: Insulin LISPRO 300 UNITS/3 ML VIAL SUBQ SCH ×3 (12:11→22:26)
[2022-01-10] MEDS ORDERED: Lidocaine Viscous Oral Soln 15 ML SOLUTION ONE (12:24)
[2022-01-10] MEDS ORDERED: Scopolamine Patch 1.5 MG PATCH.TD72 TD SCH (12:30)
[2022-01-10] MEDS: Morphine Sulfate 2 MG/ML SYRINGE IVP PRN ×2 (14:25→20:03)
[2022-01-10] MEDS: Baclofen 10 MG TABLET GTUBE SCH ×2 (14:26→20:53)
[2022-01-10] MEDS: tiZANidine 4 MG TABLET GTUBE PRN (14:26)
[2022-01-10] MEDS: Glycopyrrolate 1 MG TABLET GTUBE SCH ×2 (16:16→22:09)
[2022-01-10] MEDS: Scopolamine Patch 1.5 MG PATCH.TD72 TD SCH (16:16)
[2022-01-10] MEDS: traZODone 50 MG TABLET GTUBE SCH (20:54)
[2022-01-10] MEDS: hydrOXYzine pamoate 25 MG CAPSULE PO PRN (22:50)
[2022-01-10 23:00] LABS: ABG Base Excess 2 mEq/L (-2 to 3); ABG HCO3 27 mEq/L (21-27); ABG Oxygen Saturation 95 % (95-98); ABG PCO2 41 mmHg (35-45); ABG PH 7.43 pH Units (7.32-7.45); ABG PO2 73 mmHg (85-104); ABG TCO2 28 mEq/L (20-26); Blood Gas Modality ASSIST CONTROL; Blood Gas VT 400 cc
[2022-01-11] MEDS: Piperacillin/Tazobactam 3.375 GM in 0.9 % Sodium Chloride Mini Bag 100 ML IVPB SCH ×3 (00:26→16:49)
[2022-01-11] MEDS: Insulin LISPRO 300 UNITS/3 ML VIAL SUBQ SCH ×6 (00:27→22:04)
[2022-01-11] MEDS: Morphine Sulfate 2 MG/ML SYRINGE IVP PRN (00:33)
[2022-01-11] MEDS: ALPRAZolam 1 MG TABLET GTUBE SCH ×4 (01:48→21:00)
[2022-01-11 02:33] LABS: Basophils # 0.1 K/mcL (0.0-0.2); Basophils % 0.3 %; Eosinophils % 0.1 %; Hematocrit 34.3 % (35.3-44.9); Hemoglobin 11.1 g/dL (11.5-15.4); Immature Granulocytes % 1.1 % (0-4); Lymphocytes # 2.1 K/mcL (0.6-4.6); Lymphocytes % 10.7 %; Mean Corpuscular HGB Conc 32.4 g/dL (31.6-35.5); Mean Corpuscular Volume 92.7 fL (83.0-100.0); Mean Platelet Volume 8.7 fL (9.4-12.4); Monocytes # 1.1 K/mcL (0.0-1.3); Monocytes % 5.8 %; Neutrophils # 16.2 K/mcL (1.6-8.9); Platelet Count 370 K/mcL (140-400); Red Cell Distribution Width 12.8 % (11.5-14.5); White Blood Count 19.8 K/mcL (4.3-11.1)
[2022-01-11 02:53] LABS: Blood Urea Nitrogen 9 mg/dL (6-20); Calcium 8.1 mg/dL (8.6-10.3); Carbon Dioxide 26 mEq/L (23-29); Chloride 101 mEq/L (98-107); Glucose 128 mg/dL (70-105); Osmolality,Calculated 282 (280-300); Potassium 3.5 mEq/L (3.5-5.1); Sodium 136 mEq/L (136-145)
[2022-01-11 03:06] LABS: Magnesium 1.7 mg/dL (1.6-2.6); Phosphorous 2.3 mg/dL (2.7-4.5)
[2022-01-11] MEDS: hydrOXYzine pamoate 25 MG CAPSULE PO PRN ×3 (03:54→16:50)
[2022-01-11] MEDS: *HR* OxyCODONE Oral Soln 5 MG/5 ML UD.LIQ GTUBE PRN ×3 (04:13→16:50)
[2022-01-11] MEDS: 0.9 % Sodium Chloride 1,000 ML IVC SCH ×4 (04:15→22:14)
[2022-01-11] MEDS: *HR* Enoxaparin 40 MG/0.4 ML SYRINGE SQ SCH (07:24)
[2022-01-11] MEDS: Azithromycin 500 MG in 0.9 % Sodium Chloride 250 ML IVPB SCH (07:24)
[2022-01-11] MEDS: Baclofen 10 MG TABLET GTUBE SCH ×3 (07:25→21:01)
[2022-01-11] MEDS: Glycopyrrolate 1 MG TABLET GTUBE SCH ×3 (07:47→21:01)
[2022-01-11] MEDS ORDERED: ALPRAZolam 1 MG TABLET PO SCH (09:00)
[2022-01-11 13:02] LABS: A.calcoaceticus-baumannii cplx Not Detected (Not Detect); Bacteroides fragilis by PCR Not Detected (Not Detect); Enterococcus faecalis by PCR Not Detected (Not Detect); Enterococcus faecium by PCR Not Detected (Not Detect); Staph epidermidis by PCR Not Detected (Not Detect); Staph lugdunensis by PCR Not Detected (Not Detect); Staphylococcus aureus by PCR Not Detected (Not Detect); Staphylococcus by PCR DETECTED (Not Detect); Streptococcus agalactiae(B)PCR Not Detected (Not Detect); Streptococcus by PCR Not Detected (Not Detect); Streptococcus pneumoniae PCR Not Detected (Not Detect); Streptococcus pyogenes (A) PCR Not Detected (Not Detect)
[2022-01-11 13:03] LABS: Candida albicans by PCR Not Detected (Not Detect); Candida auris by PCR Not Detected (Not Detect); Candida glabrata by PCR Not Detected (Not Detect); Candida krusei by PCR Not Detected (Not Detect); Candida parapsilosis by PCR Not Detected (Not Detect); Candida tropicalis by PCR Not Detected (Not Detect); Crypto. neoformans/gattii PCR Not Detected (Not Detect); Enterobacter cloacae Cmplx PCR Not Detected (Not Detect); Enterobacterales by PCR Not Detected (Not Detect); Escherichia coli by PCR Not Detected (Not Detect); Klebs. pneumoniae group by PCR Not Detected (Not Detect); Klebsiella aerogenes by PCR Not Detected (Not Detect); Klebsiella oxytoca by PCR Not Detected (Not Detect); Proteus by PCR Not Detected (Not Detect); Pseudomonas aeruginosa by PCR Not Detected (Not Detect); Salmonella species by PCR Not Detected (Not Detect); Serratia marcescens by PCR Not Detected (Not Detect); Stenotrophomonas maltophilia Not Detected (Not Detect)
[2022-01-11] MEDS: tiZANidine 4 MG TABLET GTUBE PRN (18:06)
[2022-01-11] MEDS: traZODone 50 MG TABLET GTUBE SCH (21:02)
[2022-01-12] MEDS: Piperacillin/Tazobactam 3.375 GM in 0.9 % Sodium Chloride Mini Bag 100 ML IVPB SCH ×3 (00:18→17:32)
[2022-01-12] MEDS: Insulin LISPRO 300 UNITS/3 ML VIAL SUBQ SCH ×6 (00:18→20:57)
[2022-01-12] MEDS: tiZANidine 4 MG TABLET GTUBE PRN (01:13)
[2022-01-12] MEDS: *HR* OxyCODONE Oral Soln 5 MG/5 ML UD.LIQ GTUBE PRN (01:17)
[2022-01-12] MEDS: Morphine Sulfate 2 MG/ML SYRINGE IVP PRN ×4 (03:47→21:19)
[2022-01-12] MEDS ORDERED: tiZANidine 4 MG TABLET PO ONE (05:02)
[2022-01-12] MEDS: *HR* Enoxaparin 40 MG/0.4 ML SYRINGE SQ SCH (05:20)
[2022-01-12 05:48] LABS: Basophils # 0.1 K/mcL (0.0-0.2); Basophils % 0.4 %; Eosinophils # 0.1 K/mcL (0.0-0.6); Eosinophils % 0.3 %; Hematocrit 33.2 % (35.3-44.9); Hemoglobin 10.8 g/dL (11.5-15.4); Lymphocytes # 2.9 K/mcL (0.6-4.6); Lymphocytes % 17.7 %; Mean Corpuscular HGB Conc 32.5 g/dL (31.6-35.5); Mean Corpuscular Hemoglobin 30.5 pg (28.0-33.3); Mean Corpuscular Volume 93.8 fL (83.0-100.0); Mean Platelet Volume 8.7 fL (9.4-12.4); Monocytes # 1.1 K/mcL (0.0-1.3); Monocytes % 6.6 %; Neutrophils # 12.2 K/mcL (1.6-8.9); Platelet Count 317 K/mcL (140-400); Red Blood Count 3.54 M/mcL (3.82-4.97); Red Cell Distribution Width 13.2 % (11.5-14.5); White Blood Count 16.5 K/mcL (4.3-11.1)
[2022-01-12 06:49] LABS: Blood Urea Nitrogen 7 mg/dL (6-20); Calcium 8.4 mg/dL (8.6-10.3); Carbon Dioxide 31 mEq/L (23-29); Chloride 103 mEq/L (98-107); Glucose 117 mg/dL (70-105); Magnesium 1.9 mg/dL (1.6-2.6); Osmolality,Calculated 287 (280-300); Potassium 3.5 mEq/L (3.5-5.1); Sodium 139 mEq/L (136-145)
[2022-01-12] MEDS: Baclofen 10 MG TABLET GTUBE SCH ×3 (08:46→20:56)
[2022-01-12] MEDS: Glycopyrrolate 1 MG TABLET GTUBE SCH ×3 (08:47→20:56)
[2022-01-12] MEDS: ALPRAZolam 1 MG TABLET GTUBE SCH ×3 (08:47→20:56)
[2022-01-12] MEDS: Azithromycin 500 MG in 0.9 % Sodium Chloride 250 ML IVPB SCH (08:48)
[2022-01-12] MEDS: 0.9 % Sodium Chloride 1,000 ML IVC SCH ×2 (09:35→17:32)
[2022-01-12] MEDS: traZODone 50 MG TABLET GTUBE SCH (20:56)
[2022-01-13] MEDS: Piperacillin/Tazobactam 3.375 GM in 0.9 % Sodium Chloride Mini Bag 100 ML IVPB SCH ×3 (00:10→15:51)
[2022-01-13] MEDS: Insulin LISPRO 300 UNITS/3 ML VIAL SUBQ SCH ×6 (00:11→21:16)
[2022-01-13] MEDS: Morphine Sulfate 2 MG/ML SYRINGE IVP PRN ×5 (01:07→21:16)
[2022-01-13] MEDS: 0.9 % Sodium Chloride 1,000 ML IVC SCH ×4 (01:11→18:50)
[2022-01-13 04:56] LABS: Basophils # 0.1 K/mcL (0.0-0.2); Basophils % 0.5 %; Eosinophils # 0.1 K/mcL (0.0-0.6); Eosinophils % 0.8 %; Hematocrit 28.4 % (35.3-44.9); Immature Granulocytes % 0.9 % (0-4); Lymphocytes # 2.2 K/mcL (0.6-4.6); Lymphocytes % 17.4 %; Mean Corpuscular HGB Conc 31.7 g/dL (31.6-35.5); Mean Corpuscular Hemoglobin 30.1 pg (28.0-33.3); Monocytes # 0.7 K/mcL (0.0-1.3); Monocytes % 5.1 %; Neutrophils # 9.6 K/mcL (1.6-8.9); Platelet Count 244 K/mcL (140-400); Red Blood Count 2.99 M/mcL (3.82-4.97); Red Cell Distribution Width 13.2 % (11.5-14.5); Segmented Neutrophils % 75.3 %; White Blood Count 12.7 K/mcL (4.3-11.1)
[2022-01-13 05:12] LABS: Blood Urea Nitrogen 6 mg/dL (6-20); Carbon Dioxide 31 mEq/L (23-29); Chloride 104 mEq/L (98-107); Glucose 184 mg/dL (70-105); Osmolality,Calculated 286 (280-300); Potassium 3.6 mEq/L (3.5-5.1); Sodium 137 mEq/L (136-145)
[2022-01-13] MEDS: *HR* Enoxaparin 40 MG/0.4 ML SYRINGE SQ SCH (06:52)
[2022-01-13] MEDS: Azithromycin 500 MG in 0.9 % Sodium Chloride 250 ML IVPB SCH (06:52)
[2022-01-13] MEDS ORDERED: Vancomycin 1,500 MG/265 ML IV.SOLN IVPB ONE (10:19)
[2022-01-13] MEDS: *HR* OxyCODONE Oral Soln 5 MG/5 ML UD.LIQ GTUBE PRN ×2 (10:38→18:51)
[2022-01-13] MEDS: Lactobacillus 1 EACH CAP.SPRINK PO SCH (10:40)
[2022-01-13] MEDS: Baclofen 10 MG TABLET GTUBE SCH ×3 (10:40→21:18)
[2022-01-13] MEDS: Glycopyrrolate 1 MG TABLET GTUBE SCH ×3 (10:41→21:17)
[2022-01-13] MEDS: ALPRAZolam 1 MG TABLET GTUBE SCH ×3 (10:41→21:17)
[2022-01-13] MEDS: tiZANidine 4 MG TABLET GTUBE PRN (10:41)
[2022-01-13] MEDS: Scopolamine Patch 1.5 MG PATCH.TD72 TD SCH (15:50)
[2022-01-13] MEDS: Vancomycin 1,500 MG/265 ML IV.SOLN IVPB SCH (21:16)
[2022-01-13] MEDS: traZODone 50 MG TABLET GTUBE SCH (21:17)
[2022-01-14] MEDS: Insulin LISPRO 300 UNITS/3 ML VIAL SUBQ SCH ×6 (00:42→20:45)
[2022-01-14] MEDS: Piperacillin/Tazobactam 3.375 GM in 0.9 % Sodium Chloride Mini Bag 100 ML IVPB SCH ×4 (00:47→22:51)
[2022-01-14] MEDS: Morphine Sulfate 2 MG/ML SYRINGE IVP PRN ×4 (01:22→21:08)
[2022-01-14] MEDS: 0.9 % Sodium Chloride 1,000 ML IVC SCH ×3 (02:43→23:05)
[2022-01-14] MEDS: *HR* OxyCODONE Oral Soln 5 MG/5 ML UD.LIQ GTUBE PRN ×4 (04:06→22:51)
[2022-01-14] MEDS: Vancomycin 1,500 MG/265 ML IV.SOLN IVPB SCH ×3 (04:06→21:08)
[2022-01-14 06:17] LABS: Basophils # 0.1 K/mcL (0.0-0.2); Basophils % 0.5 %; Eosinophils # 0.2 K/mcL (0.0-0.6); Eosinophils % 1.5 %; Hematocrit 32.3 % (35.3-44.9); Hemoglobin 10.2 g/dL (11.5-15.4); Immature Granulocytes % 1.1 % (0-4); Lymphocytes # 2.3 K/mcL (0.6-4.6); Lymphocytes % 19.5 %; Mean Corpuscular HGB Conc 31.6 g/dL (31.6-35.5); Mean Corpuscular Hemoglobin 30.2 pg (28.0-33.3); Mean Corpuscular Volume 95.6 fL (83.0-100.0); Mean Platelet Volume 9.3 fL (9.4-12.4); Monocytes # 0.6 K/mcL (0.0-1.3); Monocytes % 5.1 %; Neutrophils # 8.7 K/mcL (1.6-8.9); Platelet Count 303 K/mcL (140-400); Red Blood Count 3.38 M/mcL (3.82-4.97); Red Cell Distribution Width 13.4 % (11.5-14.5); Segmented Neutrophils % 72.3 %
[2022-01-14 06:48] LABS: Blood Urea Nitrogen 6 mg/dL (6-20); Calcium 8.5 mg/dL (8.6-10.3); Carbon Dioxide 29 mEq/L (23-29); Chloride 103 mEq/L (98-107); Glucose 166 mg/dL (70-105); Osmolality,Calculated 287 (280-300); Potassium 3.9 mEq/L (3.5-5.1); Sodium 138 mEq/L (136-145)
[2022-01-14] MEDS: Baclofen 10 MG TABLET GTUBE SCH ×3 (08:00→20:48)
[2022-01-14] MEDS: Lactobacillus 1 EACH CAP.SPRINK PO SCH (08:01)
[2022-01-14] MEDS: ALPRAZolam 1 MG TABLET GTUBE SCH ×3 (08:01→20:47)
[2022-01-14] MEDS: Glycopyrrolate 1 MG TABLET GTUBE SCH ×3 (08:02→20:48)
[2022-01-14] MEDS: *HR* Enoxaparin 40 MG/0.4 ML SYRINGE SQ SCH (08:03)
[2022-01-14] MEDS: tiZANidine 4 MG TABLET GTUBE PRN ×3 (10:05→21:10)
[2022-01-14] MEDS: hydrOXYzine pamoate 25 MG CAPSULE PO PRN ×2 (12:56→16:56)
[2022-01-14] MEDS: traZODone 50 MG TABLET GTUBE SCH (20:48)
[2022-01-15] MEDS: Insulin LISPRO 300 UNITS/3 ML VIAL SUBQ SCH ×6 (01:19→21:07)
[2022-01-15] MEDS: hydrOXYzine pamoate 25 MG CAPSULE PO PRN ×2 (01:26→15:29)
[2022-01-15] MEDS: Morphine Sulfate 2 MG/ML SYRINGE IVP PRN ×4 (01:26→20:09)
[2022-01-15] MEDS ORDERED: diazePAM 10 MG/2 ML SYRINGE IVP STA (02:49)
[2022-01-15 04:01] LABS: Basophils # 0.1 K/mcL (0.0-0.2); Basophils % 0.6 %; Eosinophils # 0.2 K/mcL (0.0-0.6); Eosinophils % 1.6 %; Hematocrit 36.5 % (35.3-44.9); Hemoglobin 11.4 g/dL (11.5-15.4); Immature Granulocytes % 1.5 % (0-4); Lymphocytes % 21.3 %; Mean Corpuscular HGB Conc 31.2 g/dL (31.6-35.5); Mean Corpuscular Volume 96.1 fL (83.0-100.0); Mean Platelet Volume 9.3 fL (9.4-12.4); Monocytes # 0.8 K/mcL (0.0-1.3); Monocytes % 5.9 %; Neutrophils # 9.7 K/mcL (1.6-8.9); Platelet Count 341 K/mcL (140-400); Red Cell Distribution Width 13.5 % (11.5-14.5); Segmented Neutrophils % 69.1 %
[2022-01-15 04:20] LABS: Blood Urea Nitrogen 7 mg/dL (6-20); Calcium 9.1 mg/dL (8.6-10.3); Carbon Dioxide 29 mEq/L (23-29); Chloride 102 mEq/L (98-107); Glucose 125 mg/dL (70-105); Osmolality,Calculated 283 (280-300); Potassium 4.3 mEq/L (3.5-5.1); Sodium 137 mEq/L (136-145)
[2022-01-15] MEDS: tiZANidine 4 MG TABLET GTUBE PRN ×2 (04:45→23:11)
[2022-01-15] MEDS: *HR* OxyCODONE Oral Soln 5 MG/5 ML UD.LIQ GTUBE PRN ×4 (04:45→23:11)
[2022-01-15] MEDS: Vancomycin 1,500 MG/265 ML IV.SOLN IVPB SCH ×3 (05:14→20:09)
[2022-01-15] MEDS: 0.9 % Sodium Chloride 1,000 ML IVC SCH ×3 (06:21→20:09)
[2022-01-15] MEDS ORDERED: *HR* Propofol 200 MG/20 ML VIAL IVP ONE (07:21)
[2022-01-15] MEDS ORDERED: *HR* Midazolam HCl 2 MG/2 ML VIAL ONE (07:21)
[2022-01-15] MEDS ORDERED: Silver Nitrate Applicator 1 STICK..EA. TP ONE (07:47)
[2022-01-15] MEDS ORDERED: *HR* FentaNYL (PF) 100 MCG/2 ML VIAL IVP PRN (08:34)
[2022-01-15] MEDS ORDERED: flumazeniL 0.5 MG/5 ML VIAL IVP PRN (08:34)
[2022-01-15] MEDS ORDERED: Racepinephrine Neb 0.5 ML VIAL IH PRN (08:34)
[2022-01-15] MEDS ORDERED: *HR* Meperidine 25 MG/ML SYRINGE IVP PRN (08:34)
[2022-01-15] MEDS ORDERED: Acetaminophen IV 1,000 MG/100 ML BAG IVPB PRN (08:34)
[2022-01-15] MEDS ORDERED: Ipratropium Neb 0.5 MG NEBULIZER IH PRN (08:34)
[2022-01-15] MEDS ORDERED: Ondansetron 4 MG/2 ML VIAL IVP PRN (08:34)
[2022-01-15] MEDS ORDERED: Albuterol 2.5 MG/3 ML NEBULIZER IH PRN (08:34)
[2022-01-15 10:19] LABS: Magnesium 1.9 mg/dL (1.6-2.6); Phosphorous 3.1 mg/dL (2.7-4.5)
[2022-01-15] MEDS ORDERED: Lidocaine HCL 4 ML Topical Solution (Laryng-O-Jet Kit Sterile Pak) TP ONE (10:33)
[2022-01-15] MEDS ORDERED: Lidocaine -MPF 2% 2 ML VIAL ONE (10:33)
[2022-01-15] MEDS ORDERED: *HR* Rocuronium Bromide 50 MG/5 ML VIAL ONE (10:33)
[2022-01-15] MEDS ORDERED: Ondansetron 4 MG/2 ML VIAL ONE (10:33)
[2022-01-15] MEDS: *HR* Enoxaparin 40 MG/0.4 ML SYRINGE SQ SCH (10:48)
[2022-01-15] MEDS: Baclofen 10 MG TABLET GTUBE SCH ×3 (10:49→20:09)
[2022-01-15] MEDS: ALPRAZolam 1 MG TABLET GTUBE SCH ×3 (10:49→20:07)
[2022-01-15] MEDS: Lactobacillus 1 EACH CAP.SPRINK PO SCH (10:49)
[2022-01-15] MEDS: Glycopyrrolate 1 MG TABLET GTUBE SCH ×3 (10:50→20:08)
[2022-01-15] MEDS: Piperacillin/Tazobactam 3.375 GM in 0.9 % Sodium Chloride Mini Bag 100 ML IVPB SCH ×3 (10:52→23:11)
[2022-01-15] MEDS ORDERED: *HR* LORazepam 2 MG/ML VIAL IVP ONE (11:41)
[2022-01-15] MEDS: traZODone 50 MG TABLET GTUBE SCH (20:07)
[2022-01-16] MEDS: Insulin LISPRO 300 UNITS/3 ML VIAL SUBQ SCH ×4 (00:31→12:02)
[2022-01-16] MEDS: Morphine Sulfate 2 MG/ML SYRINGE IVP PRN ×3 (01:41→09:56)
[2022-01-16] MEDS ORDERED: tiZANidine 4 MG TABLET GTUBE ONE (02:55)
[2022-01-16] MEDS: Vancomycin 1,500 MG/265 ML IV.SOLN IVPB SCH ×2 (03:07→11:00)
[2022-01-16] MEDS: *HR* OxyCODONE Oral Soln 5 MG/5 ML UD.LIQ GTUBE PRN ×3 (03:08→12:20)
[2022-01-16 03:40] LABS: Basophils # 0.1 K/mcL (0.0-0.2); Basophils % 0.4 %; Eosinophils # 0.2 K/mcL (0.0-0.6); Eosinophils % 1.1 %; Hematocrit 34.2 % (35.3-44.9); Immature Granulocytes % 0.9 % (0-4); Lymphocytes # 2.2 K/mcL (0.6-4.6); Lymphocytes % 13.3 %; Mean Corpuscular HGB Conc 32.2 g/dL (31.6-35.5); Mean Corpuscular Hemoglobin 30.4 pg (28.0-33.3); Mean Corpuscular Volume 94.5 fL (83.0-100.0); Monocytes # 1.2 K/mcL (0.0-1.3); Monocytes % 7.1 %; Neutrophils # 12.9 K/mcL (1.6-8.9); Platelet Count 305 K/mcL (140-400); Red Blood Count 3.62 M/mcL (3.82-4.97); Red Cell Distribution Width 13.7 % (11.5-14.5); Segmented Neutrophils % 77.2 %; White Blood Count 16.7 K/mcL (4.3-11.1)
[2022-01-16 03:59] LABS: BUN/Creatinine Ratio 44 (6-26); Blood Urea Nitrogen 12 mg/dL (6-20); Calcium 8.5 mg/dL (8.6-10.3); Carbon Dioxide 29 mEq/L (23-29); Chloride 102 mEq/L (98-107); Glucose 192 mg/dL (70-105); Osmolality,Calculated 291 (280-300); Sodium 138 mEq/L (136-145); eGFR For African Americans > 60 (> 60); eGFR For Non-African Americans > 60 (> 60)
[2022-01-16] MEDS: *HR* Enoxaparin 40 MG/0.4 ML SYRINGE SQ SCH (05:42)
[2022-01-16] MEDS: Piperacillin/Tazobactam 3.375 GM in 0.9 % Sodium Chloride Mini Bag 100 ML IVPB SCH (08:08)
[2022-01-16] MEDS: Lactobacillus 1 EACH CAP.SPRINK PO SCH (08:09)
[2022-01-16] MEDS: Baclofen 10 MG TABLET GTUBE SCH (08:09)
[2022-01-16] MEDS: ALPRAZolam 1 MG TABLET GTUBE SCH (08:09)
[2022-01-16] MEDS: Glycopyrrolate 1 MG TABLET GTUBE SCH (08:10)
[2022-01-16] MEDS: 0.9 % Sodium Chloride 1,000 ML IVC SCH (08:22)
[2022-01-16] MEDS: hydrOXYzine pamoate 25 MG CAPSULE PO PRN (10:10)
[2022-01-16] MEDS: tiZANidine 4 MG TABLET GTUBE PRN (10:10)
[2022-01-16 11:22] VITALS: BP 133/86; PULSE 113; TEMP 98; O2SAT 97
== END 2022-01-16 13:20 | disposition home health service (06) | DRG 871 ==
LOC: 3NENU 02:57 → EMEROOARM 02:57 → SUATTDRO 06:20 → 3NENU 07:58 → SUATTDRO 11:47 → 2NNU 19:47
PROVIDERS: ADMIT Internal Medicine; ATTEND Internal Medicine